=== PATIENT | male | born 1955 | race African-American/Black ===

== ENCOUNTER → 2022-04-05 | Outpatient (CLI) | payer MEDICARE, OTHER ==
[~2022-04-05] MED LIST: AMLODIPINE BESYL5 MG PO; ASPIRIN81 MG PO; ATORVASTATIN CA20 MG PO; BUPROPION HCL100 MG PO; BUSPIRONE HCL10 MG PO; CARVEDILOL12.5 MG PO; CITRACAL-D3 MA1 EACH PO; CLOPIDOGREL75 MG PO; DIPHENHYDRAMINE25 MG PO; ENTRESTO 97 MG1 EACH PO; FAMOTIDINE20 MG PO; FINASTERIDE5 MG PO; FLOMAX0.4 MG PO; HYDROCORTISONE114 GM TOP; HYDROXYZINE PAM25 MG PO; IOPAMIDOL 370 MG/ML 100 ML INFUS..BTL INJ ONE; JARDIANCE10 MG PO; MELOXICAM7.5 MG PO; METFORMIN HCL500 MG PO; NEURONTIN400 MG PO; PROTONIX20 MG PO; SERTRALINE HCL50 MG PO; TERBINAFINE HC250 MG PO; TIZANIDINE HCL4 M1 PO; VENLAFAXINE H37.5 M2 PO; VITAMIN D 3 PO
[2022-04-05 11:07] LABS: CREATININE, SERUM 0.75 mg/dL (0.72-1.25)
== END ==
LOC: NM 09:12
PROVIDERS: ATTEND Urology
DX: C61 Malignant neoplasm of prostate (principal); R31.0 Gross hematuria
CPT/HCPCS: 36415; 74177; 78306; 82565; 84520; A9503; Q9967

== ENCOUNTER 2022-04-10 10:49 | Inpatient (IN) | payer MEDICARE, OTHER ==
[2022-04-05 10:28] LABS: BASOPHILS % 0.2 % (0.0-1.0); EOSINOPHILS % 0.5 % (0.0-6.0); HEMOGLOBIN 13.6 g/dL (14.0-18.0); LYMPHOCYTES # (AUTO) 1.4 (1.0-3.2); LYMPHOCYTES % 16.9 % (18.0-39.1); MEAN CORPUSCULAR HEMOGLOBIN 22.1 pg (28-32); MEAN CORPUSCULAR HGB CONC 28.9 g/dL (31-35); MEAN CORPUSCULAR VOLUME 76.5 fL (81-99); MONOCYTES # (AUTO) 0.6 (0.2-0.8); NEUTROPHILS # (AUTO) 6.3 (2.1-6.9); PLATELET COUNT 219 x10e3/uL (140-360); RED BLOOD COUNT 6.14 x10e6/uL (4.3-5.7)
[2022-04-05 10:46] LABS: ANION GAP 21.5 mmol/L (8-16); CALCIUM 9.4 mg/dL (8.4-10.2); CREATININE, SERUM 0.73 mg/dL (0.72-1.25); POTASSIUM 4.5 mmol/L (3.5-5.1)
[~2022-04-10] VITALS: Ht 193 cm; Wt 113.4 kg
[~2022-04-10 10:49] MED LIST changes: +ACETAMINOPHEN 1000 MG/100 ML IV PRN; +ACETAMINOPHEN/CODEINE 300MG - 30MG TAB PO PRN; +CEFTRIAXONE 1 GM VIAL ONE; +DIPHENHYDRAMINE HCL 25 MG CAP PO PRN; +GENTAMICIN 80MG/NS 100 ML 200 ML IV ONE; -IOPAMIDOL 370 MG/ML 100 ML INFUS..BTL INJ ONE; +ONDANSETRON HCL INJ 2MG/ML 2ML 2 MG/ML VIAL IV PRN; +PHENAZOPYRIDINE HCL 100 MG TAB PO PRN; +SODIUM CHLORIDE 0.9% 1000ML 1,000 ML IV SCH
[2022-04-10 11:02] LABS: BASOPHILS % 0.3 % (0.0-1.0); EOSINOPHILS # (AUTO) 0.3 (0.0-0.4); EOSINOPHILS % 2.5 % (0.0-6.0); HEMATOCRIT 40.2 % (38.2-49.6); HEMOGLOBIN 11.6 g/dL (14.0-18.0); LYMPHOCYTES # (AUTO) 1.7 (1.0-3.2); LYMPHOCYTES % 17.1 % (18.0-39.1); MEAN CORPUSCULAR HGB CONC 28.9 g/dL (31-35); MEAN CORPUSCULAR VOLUME 76.1 fL (81-99); MONOCYTES # (AUTO) 0.4 (0.2-0.8); MONOCYTES % 4.3 % (4.4-11.3); NEUTROPHILS # (AUTO) 7.5 (2.1-6.9); NEUTROPHILS % 75.6 % (38.7-80.0); PLATELET COUNT 211 x10e3/uL (140-360); RED BLOOD COUNT 5.28 x10e6/uL (4.3-5.7); RED CELL DISTRIBUTION WIDTH 19.5 % (11.7-14.4)
[2022-04-10 11:18] VITALS: BP 168/87
[2022-04-10 11:27] LABS: ANION GAP 11.7 mmol/L (8-16); CALCIUM 8.7 mg/dL (8.4-10.2); CREATININE, SERUM 0.82 mg/dL (0.72-1.25); POTASSIUM 4.7 mmol/L (3.5-5.1)
[2022-04-10 11:57] VITALS: BP 168/87
[2022-04-10] MEDS: SODIUM CHLORIDE 0.9% 1000ML 1,000 ML IV SCH ×2 (12:00→20:39)
[2022-04-10] MEDS ORDERED: ONDANSETRON HCL INJ 2MG/ML 2ML 2 MG/ML VIAL ONE (13:04)
[2022-04-10] MEDS ORDERED: LIDOCAINE HCL 2% LOCAL INJ 5 ML SDV VIAL INJ ONE (13:04)
[2022-04-10] MEDS ORDERED: ROCURONIUM BROMIDE 10 MG/ML 5ML VIAL IV ONE (13:04)
[2022-04-10] MEDS ORDERED: POVIDONE IODINE 0.05% 0.05 % ML PO ONE (13:04)
[2022-04-10] MEDS ORDERED: ETOMIDATE 2 MG/ML 10 ML INJ IV ONE (13:04)
[2022-04-10] MEDS ORDERED: SEVOFLURANE INHAL SOLN 250 ML PEN BTL ONE (13:04)
[2022-04-10] MEDS ORDERED: DEXAMETHASONE SOD PHOS INJ 4 MG/ML SDV ONE (13:04)
[2022-04-10] MEDS ORDERED: PROPOFOL IV EMULSION 10 MG/ML 20 ML VIAL ONE (13:04)
[2022-04-10] MEDS ORDERED: METOCLOPRAMIDE HCL 10 MG/2ML VIAL ONE (13:04)
[2022-04-10] MEDS ORDERED: FENTANYL CITRATE/PF 100MCG/2 ML INJ ONE (13:22)
[2022-04-10] MEDS ORDERED: DEXTROSE 50% SYRINGE 50 ML IV PRN (13:30)
[2022-04-10] MEDS: GABAPENTIN 400 MG CAP PO SCH ×2 (14:16→20:39)
[2022-04-10] MEDS: BUPROPION HCL 150 MG TABCR PO SCH (14:16)
[2022-04-10] MEDS: ACETAMINOPHEN/CODEINE 300MG - 30MG TAB PO PRN ×3 (14:34→23:46)
[2022-04-10] MEDS: BUSPIRONE HCL 10 MG TABLET PO SCH (16:09)
[2022-04-10] MEDS: DOCUSATE SODIUM 100 MG CAP PO SCH (16:10)
[2022-04-10] MEDS: CARVEDILOL 12.5 MG TAB PO SCH (16:10)
[2022-04-10 16:11] VITALS: BP 152/69
[2022-04-10] MEDS: INSULIN LISPRO 100 UNIT/1 ML 3ML VIAL SQ SCH ×2 (16:11→20:46)
[2022-04-10] MEDS: PHENAZOPYRIDINE HCL 100 MG TAB PO PRN (16:40)
[2022-04-10] MEDS ORDERED: DOCUSATE SODIUM 100 MG CAP PO SCH (17:00)
[2022-04-10 19:35] VITALS: BP 120/58
[2022-04-10 20:00] VITALS: BP 120/58
[2022-04-10] MEDS: ATORVASTATIN 40 MG TAB PO SCH (20:38)
[2022-04-11] VITALS (8 sets, daily range): BP systolic 123–147; BP diastolic 57–84
[2022-04-11] MEDS: ACETAMINOPHEN/CODEINE 300MG - 30MG TAB PO PRN ×5 (03:45→22:28)
[2022-04-11 06:30] LABS: BASOPHILS % 0.3 % (0.0-1.0); EOSINOPHILS # (AUTO) 0.1 (0.0-0.4); EOSINOPHILS % 0.5 % (0.0-6.0); HEMATOCRIT 37.2 % (38.2-49.6); HEMOGLOBIN 11.5 g/dL (14.0-18.0); LYMPHOCYTES # (AUTO) 2.2 (1.0-3.2); LYMPHOCYTES % 14.9 % (18.0-39.1); MEAN CORPUSCULAR HEMOGLOBIN 22.1 pg (28-32); MEAN CORPUSCULAR HGB CONC 30.9 g/dL (31-35); MEAN CORPUSCULAR VOLUME 71.5 fL (81-99); MONOCYTES # (AUTO) 1.2 (0.2-0.8); MONOCYTES % 8.2 % (4.4-11.3); NEUTROPHILS # (AUTO) 11.1 (2.1-6.9); NEUTROPHILS % 75.6 % (38.7-80.0); PLATELET COUNT 202 x10e3/uL (140-360); RED CELL DISTRIBUTION WIDTH 19.5 % (11.7-14.4)
[2022-04-11 06:52] LABS: ANION GAP 13.7 mmol/L (8-16); CALCIUM 8.7 mg/dL (8.4-10.2); CREATININE, SERUM 0.83 mg/dL (0.72-1.25); POTASSIUM 3.7 mmol/L (3.5-5.1)
[2022-04-11] MEDS: INSULIN LISPRO 100 UNIT/1 ML 3ML VIAL SQ SCH ×4 (07:30→21:00)
[2022-04-11] MEDS: PANTOPRAZOLE SOD 40 MG TABEC PO SCH (08:57)
[2022-04-11] MEDS: AMLODIPINE BESYLATE 5 MG TAB PO SCH (08:57)
[2022-04-11] MEDS: BUSPIRONE HCL 10 MG TABLET PO SCH ×2 (08:57→15:57)
[2022-04-11] MEDS: GABAPENTIN 400 MG CAP PO SCH ×3 (08:57→21:40)
[2022-04-11] MEDS: DOCUSATE SODIUM 100 MG CAP PO SCH ×2 (08:58→15:25)
[2022-04-11] MEDS: CARVEDILOL 12.5 MG TAB PO SCH ×2 (08:59→15:57)
[2022-04-11] MEDS: BUPROPION HCL 150 MG TABCR PO SCH (09:00)
[2022-04-11] MEDS ORDERED: FAMOTIDINE 20 MG TAB PO PRN (11:30)
[2022-04-11] MEDS ORDERED: TIZANIDINE HCL 4 MG TAB PO PRN (11:30)
[2022-04-11] MEDS: SODIUM CHLORIDE 0.9% 1000ML 1,000 ML IV SCH (13:16)
[2022-04-11] MEDS: PHENAZOPYRIDINE HCL 100 MG TAB PO PRN (14:03)
[2022-04-11] MEDS: TAMSULOSIN HCL 0.4 MG CAP PO SCH (15:57)
[2022-04-11] MEDS: SACUBITRIL/VALSARTAN 1 EACH TABLET PO SCH (15:57)
[2022-04-11] MEDS ORDERED: HYDROXYZINE PAMOATE 25 MG CAP PO SCH (21:00)
[2022-04-11] MEDS: HYDROXYZINE HCL 25 MG TAB PO SCH (21:41)
[2022-04-11] MEDS: ATORVASTATIN 40 MG TAB PO SCH (21:41)
[2022-04-12] VITALS (7 sets, daily range): BP systolic 100–148; BP diastolic 59–78
[2022-04-12] MEDS: ACETAMINOPHEN/CODEINE 300MG - 30MG TAB PO PRN (03:11)
[2022-04-12 05:47] LABS: BASOPHILS % 0.4 % (0.0-1.0); EOSINOPHILS # (AUTO) 0.3 (0.0-0.4); EOSINOPHILS % 2.5 % (0.0-6.0); HEMATOCRIT 39.5 % (38.2-49.6); HEMOGLOBIN 11.5 g/dL (14.0-18.0); LYMPHOCYTES # (AUTO) 1.8 (1.0-3.2); LYMPHOCYTES % 16.7 % (18.0-39.1); MEAN CORPUSCULAR HGB CONC 29.1 g/dL (31-35); MEAN CORPUSCULAR VOLUME 75.5 fL (81-99); MONOCYTES # (AUTO) 1.1 (0.2-0.8); MONOCYTES % 9.9 % (4.4-11.3); NEUTROPHILS # (AUTO) 7.6 (2.1-6.9); NEUTROPHILS % 70.2 % (38.7-80.0); PLATELET COUNT 229 x10e3/uL (140-360); RED BLOOD COUNT 5.23 x10e6/uL (4.3-5.7); RED CELL DISTRIBUTION WIDTH 19.4 % (11.7-14.4)
[2022-04-12 06:14] LABS: ANION GAP 13.6 mmol/L (8-16); CALCIUM 8.8 mg/dL (8.4-10.2); CREATININE, SERUM 0.82 mg/dL (0.72-1.25); POTASSIUM 3.6 mmol/L (3.5-5.1)
[2022-04-12] MEDS: PANTOPRAZOLE SOD 40 MG TABEC PO SCH ×2 (07:30→11:20)
[2022-04-12] MEDS: INSULIN LISPRO 100 UNIT/1 ML 3ML VIAL SQ SCH ×4 (07:30→21:00)
[2022-04-12 08:49] LABS: PLATELET ESTIMATE ADEQUATE; PLATELET MORPHOLOGY COMMENT NORMAL; RBC MORPHOLOGY COMMENT NORMAL
[2022-04-12 08:50] LABS: ANISOCYTOSIS SLIGHT; POIKILOCYTOSIS SLIGHT
[2022-04-12] MEDS: BUSPIRONE HCL 10 MG TABLET PO SCH ×3 (09:00→17:12)
[2022-04-12] MEDS: EMPAGLIFLOZIN 10 MG TABLET PO SCH ×2 (09:00→11:19)
[2022-04-12] MEDS: GABAPENTIN 400 MG CAP PO SCH ×4 (09:00→21:07)
[2022-04-12] MEDS: SERTRALINE HCL 50 MG TAB PO SCH ×2 (09:00→11:20)
[2022-04-12] MEDS: CARVEDILOL 12.5 MG TAB PO SCH ×3 (09:00→17:11)
[2022-04-12] MEDS: VENLAFAXINE HCL 37.5MG XR CAP PO SCH ×2 (09:00→11:20)
[2022-04-12] MEDS: AMLODIPINE BESYLATE 5 MG TAB PO SCH ×2 (09:00→11:19)
[2022-04-12] MEDS: SACUBITRIL/VALSARTAN 1 EACH TABLET PO SCH ×3 (09:00→17:12)
[2022-04-12] MEDS: BUPROPION HCL 150 MG TABCR PO SCH ×2 (09:00→11:20)
[2022-04-12] MEDS: FINASTERIDE 5 MG TAB PO SCH ×2 (09:00→11:18)
[2022-04-12] MEDS: TAMSULOSIN HCL 0.4 MG CAP PO SCH ×3 (09:00→17:12)
[2022-04-12] MEDS: DOCUSATE SODIUM 100 MG CAP PO SCH ×2 (09:00→17:00)
[2022-04-12] MEDS: SODIUM CHLORIDE 0.9% 1000ML 1,000 ML IV SCH ×2 (09:47→16:05)
[2022-04-12] MEDS: Morphine 4mg INJECTION 4 MG/ML INJ IV PRN ×4 (09:53→21:07)
[2022-04-12] MEDS ORDERED: SODIUM CHLORIDE 0.9% 250ML 250 ML ONE (09:53)
[2022-04-12] MEDS: ONDANSETRON HCL INJ 2MG/ML 2ML 2 MG/ML VIAL IV PRN ×2 (09:53→17:11)
[2022-04-12] MEDS ORDERED: FUROSEMIDE INJ 10 MG/ML 4 ML VIAL ONE (12:17)
[2022-04-12] MEDS: HYDROXYZINE HCL 25 MG TAB PO SCH (21:06)
[2022-04-12] MEDS: ATORVASTATIN 40 MG TAB PO SCH (21:06)
[2022-04-13] VITALS: BP 115/71
[2022-04-13 04:00] VITALS: BP 111/72
[2022-04-13] MEDS: Morphine 4mg INJECTION 4 MG/ML INJ IV PRN (05:42)
[2022-04-13] MEDS: SODIUM CHLORIDE 0.9% 1000ML 1,000 ML IV SCH (05:42)
[2022-04-13 06:17] LABS: BASOPHILS % 0.4 % (0.0-1.0); EOSINOPHILS # (AUTO) 0.4 (0.0-0.4); EOSINOPHILS % 3.2 % (0.0-6.0); HEMATOCRIT 38.8 % (38.2-49.6); LYMPHOCYTES # (AUTO) 1.8 (1.0-3.2); MEAN CORPUSCULAR HEMOGLOBIN 22.1 pg (28-32); MEAN CORPUSCULAR HGB CONC 30.9 g/dL (31-35); MEAN CORPUSCULAR VOLUME 71.6 fL (81-99); NEUTROPHILS # (AUTO) 7.6 (2.1-6.9); NEUTROPHILS % 69.9 % (38.7-80.0); PLATELET COUNT 221 x10e3/uL (140-360); RED BLOOD COUNT 5.42 x10e6/uL (4.3-5.7); RED CELL DISTRIBUTION WIDTH 19.9 % (11.7-14.4)
[2022-04-13 06:45] LABS: CALCIUM 8.8 mg/dL (8.4-10.2); CREATININE, SERUM 0.85 mg/dL (0.72-1.25)
[2022-04-13 08:08] VITALS: BP 135/88
[2022-04-13 09:00] VITALS: BP 135/88
[2022-04-13] MEDS: EMPAGLIFLOZIN 10 MG TABLET PO SCH (09:14)
[2022-04-13] MEDS: GABAPENTIN 400 MG CAP PO SCH (09:14)
[2022-04-13] MEDS: VENLAFAXINE HCL 37.5MG XR CAP PO SCH (09:14)
[2022-04-13] MEDS: TAMSULOSIN HCL 0.4 MG CAP PO SCH (09:15)
[2022-04-13] MEDS: AMLODIPINE BESYLATE 5 MG TAB PO SCH (09:15)
[2022-04-13] MEDS: SACUBITRIL/VALSARTAN 1 EACH TABLET PO SCH (09:15)
[2022-04-13] MEDS: BUSPIRONE HCL 10 MG TABLET PO SCH (09:15)
[2022-04-13] MEDS: SERTRALINE HCL 50 MG TAB PO SCH (09:15)
[2022-04-13] MEDS: BUPROPION HCL 150 MG TABCR PO SCH (09:15)
[2022-04-13] MEDS: CARVEDILOL 12.5 MG TAB PO SCH (09:16)
[2022-04-13] MEDS: FINASTERIDE 5 MG TAB PO SCH (09:16)
[2022-04-13] MEDS: DOCUSATE SODIUM 100 MG CAP PO SCH (09:16)
[2022-04-13] MEDS: PANTOPRAZOLE SOD 40 MG TABEC PO SCH (09:25)
[2022-04-13] MEDS: INSULIN LISPRO 100 UNIT/1 ML 3ML VIAL SQ SCH (09:33)
[2022-04-13 11:59] VITALS: BP 119/70
== END 2022-04-13 13:48 | disposition home or self-care (01) | DRG 713 ==
LOC: OR 10:49 → MED/SURG3 10:53
PROVIDERS: ADMIT Internal Medicine; ATTEND Internal Medicine
PROC: 0T788ZZ Dilation of Bilateral Ureters, Via Natural or Artificial Opening Endoscopic (ICD-10-PCS; 2022-04-10)
PROC: 0VB08ZZ Excision of Prostate, Via Natural or Artificial Opening Endoscopic (ICD-10-PCS; principal; 2022-04-10 09:12)
PROC: 0T7D8ZZ Dilation of Urethra, Via Natural or Artificial Opening Endoscopic (ICD-10-PCS; 2022-04-10 09:12)
DX: N40.1 Benign prostatic hyperplasia with lower urinary tract symptoms (principal); I69.351 Hemiplegia and hemiparesis following cerebral infarction affecting right dominant side; I10 Essential (primary) hypertension; I25.10 Atherosclerotic heart disease of native coronary artery without angina pectoris; E78.5 Hyperlipidemia, unspecified; M19.90 Unspecified osteoarthritis, unspecified site; M51.36 Other intervertebral disc degeneration, lumbar region; E11.9 Type 2 diabetes mellitus without complications; D64.9 Anemia, unspecified; C61 Malignant neoplasm of prostate; R97.20 Elevated prostate specific antigen [PSA]; N28.89 Other specified disorders of kidney and ureter; N43.3 Hydrocele, unspecified; N32.81 Overactive bladder; R39.15 Urgency of urination; R35.0 Frequency of micturition; R33.8 Other retention of urine; Z86.19 Personal history of other infectious and parasitic diseases; Z95.810 Presence of automatic (implantable) cardiac defibrillator
CPT/HCPCS: 0223U; 36415; 71046; 74420; 78708; 80048; 82948; 83735; 85025; 88304; 88305; 88342; 93005; 94799; A9562; J0696; J1100; J1580; J1940; J2001; J2270; J2405; J2765; J3010; J3410; J7030; J7050; Q0177